=== PATIENT | male | born 1990 | race Caucasian/White ===

== ENCOUNTER → 2018-05-08 | Outpatient (CLI) | payer OTHER, SELFPAY | LOC: M OUTALCOH 13:47 | PROVIDERS: ATTEND Psychiatry & Neurology Psychiatry | DX: Z13.9 Encounter for screening, unspecified (principal) ==

== ENCOUNTER 2019-03-22 23:09 | Emergency (ER) | payer OTHER ==
[~2019-03-22] VITALS: Ht 177.8 cm; Wt 75.0 kg
[2019-03-22] MEDS ORDERED: DERMABOND TOPICAL SKIN ADHESIVE TOP ONE (23:45)
[2019-03-23] MEDS ORDERED: ADACEL/BOOSTRIX VACCINE (DIPHTH/PERTUSS/ACELL/TETANUS)0.5ML SYR (90715) IM ONE
[2019-03-23] MEDS ORDERED: DERMABOND TOPICAL SKIN ADHESIVE TOP ONE (00:15)
[2019-03-23 00:21] VITALS: BP 138/79
== END 2019-03-23 00:23 | disposition home or self-care (01) ==
LOC: M ED 23:09
DX: S09.90XA Unspecified injury of head, initial encounter (principal); S01.112A Laceration without foreign body of left eyelid and periocular area, initial encounter; W01.10XA Fall on same level from slipping, tripping and stumbling with subsequent striking against unspecified object, initial encounter; Y92.149 Unspecified place in prison as the place of occurrence of the external cause; Y93.9 Activity, unspecified; Y99.9 Unspecified external cause status; Z87.891 Personal history of nicotine dependence; Z91.040 Latex allergy status; Z91.018 Allergy to other foods; Z91.89 Other specified personal risk factors, not elsewhere classified

== ENCOUNTER 2019-06-13 18:17 | Emergency (ER) | payer MEDICAID, OTHER, SELFPAY ==
[~2019-06-13] VITALS: Ht 177.8 cm; Wt 100.3 kg
[2019-06-13] MEDS ORDERED: QUET400T (18:28)
[2019-06-13 19:58] LABS: INFLUENZA A AMPLIFICATION NEGATIVE (NEGATIVE); INFLUENZA B AMPLIFICATION POSITIVE (NEGATIVE)
[2019-06-13] MEDS ORDERED: PENI500T PO (20:09)
[2019-06-13 20:20] VITALS: BP 150/90
--- NOTE | 2019-06-14 09:03 | REP ---
CHEST: Two views. There is no evidence of acute infiltrate. No pleural effusion is seen. The heart is normal in size. The mediastinal silhouette is unremarkable. The visualized osseous structures are intact. IMPRESSION: No acute pulmonary disease. Electronically Signed by Milton Dill MD 06/14/2019 06:27 P
== END 2019-06-13 20:22 | disposition home or self-care (01) ==
LOC: M ED 18:17
DX: J09.X2 Influenza due to identified novel influenza A virus with other respiratory manifestations (principal); Z20.9 Contact with and (suspected) exposure to unspecified communicable disease; F17.200 Nicotine dependence, unspecified, uncomplicated; F12.10 Cannabis abuse, uncomplicated; Z91.89 Other specified personal risk factors, not elsewhere classified; Z91.040 Latex allergy status; Z91.018 Allergy to other foods

== ENCOUNTER 2023-07-07 04:24 | Emergency (ER) | payer MEDICAID, OTHER ==
[~2023-07-07 04:24] MED LIST: PENI500T PO; QUET400T2
== END 2023-07-07 04:39 | disposition left against medical advice (07) ==
LOC: M ED 04:24
DX: Z53.21 Procedure and treatment not carried out due to patient leaving prior to being seen by health care provider (principal)

== ENCOUNTER 2023-12-03 04:25 | Emergency (ER) | payer OTHER ==
[~2023-12-03] VITALS: Ht 177.8 cm; Wt 85.7 kg
[2023-12-03 04:25] VITALS: BP 142/82; TEMP 97.4; O2SAT 96
== END 2023-12-03 07:15 | disposition left against medical advice (07) ==
LOC: M ED 04:25
DX: Z53.21 Procedure and treatment not carried out due to patient leaving prior to being seen by health care provider (principal)